=== PATIENT | male | born 1935 | race Caucasian/White ===

== ENCOUNTER 2020-03-11 11:14 | Emergency (ER) | payer MEDICARE, MEDICAID, BC, SELFPAY ==
[2020-03-11] VITALS (9 sets, daily range): BP systolic 119–145; BP diastolic 52–59; PULSE 72–105; RESP 34–49; TEMP 37; O2SAT 86–98; BMI 27.6
--- NOTE | 2020-03-11 11:57 | ECG_ITS ---
[facility] Test Date: 2020-03-11 Pat Name: Lourdes Meza Department: Room: Gender: Male Certified Histologic Technician: : 1935 Requested By: Arthur yTler Order Number: [id number] Adeline MD: Jp Caldera M.D. Measurements Intervals [place] Rate: 93 P: 64 CO: 157 QRS: -12 QRSD: 99 T: -10 QT: 347 QTc: 432 Interpretive Statements SINUS RHYTHM WITH SINUS ARRHYTHMIA POSSIBLE LEFT ATRIAL ENLARGEMENT [-0.1mV P WAVE IN V1/V2] INFERIOR MYOCARDIAL INFARCTION , OF INDETERMINATE AGE [40+ ms Q WAVE AND/OR ST/T ABNORMALITY IN II/aVF] Compared to ECG 07/02/2016 22:44:31 Myocardial infarct finding now present Electronically Signed On 03-11-2020 20:54:09 CDT by Jp Caldera M.D. [id number] f
--- NOTE | 2020-03-11 11:57 | XR_ITS ---
WS: [id number] XR chest 1V portable [id number] REASON FOR EXAM: dyspnea/hypoxia FINDINGS: There is cardiomegaly. There are interstitial changes, most notably in the left lung. The interstitial changes in the right lower lung may represent Zoie B lines. The costophrenic angles are not included on this examination . XR/XR chest 1V portable [id number] IMPRESSION: The chest is not optimally positioned on this examination with exclusion of the costophrenic angles. The findings that are seen are most suggestive of congest joe heart failure.
[2020-03-11 12:03] LABS: ABG PCO2 34.1 mmHg (35-45); ABG PH Result 7.43 (7.35-7.45); Arterial Blood Gas Hematocrit 39.2 % (42-52); Base Excess ABG -1.3 mmol/L (-2.0-2.0); Blood Gas Allen Test Pos; Blood Gas Sample Site Radial, left; Blood Gas Sample Type Arterial; HCO3 ABG 22.5 mmol/L (22-26); Oxygen Device NRB; PO2 ABG 55.9 mmHg (80.0-100.0)
[2020-03-11 12:41] LABS: Basophils % 0.2 %; Eosinophils % 0.1 %; Hematocrit 40.2 % (42.0-52.0); Hemoglobin 12.6 g/dL (11.7-16.6); Lymphocytes # 1.7 10^3/uL (0.8-4.8); Lymphocytes % 9.5 %; Mean Corpuscular HGB Conc 31.3 g/dL (30.0-36.0); Mean Corpuscular Hemoglobin 29.8 pg (28.0-34.0); Mean Platelet Volume 10.2 fL (7.4-10.4); Monocytes # 0.5 10^3/uL (0.2-0.9); Monocytes % 2.8 %; Neutrophils # 15.56 10^3/uL (1.8-7.7); Neutrophils % 86.6 %; Nucleated Red Blood Cells % 0 %; Platelet Count 246 10^3/cmm (130-400); Red Blood Count 4.23 10^6/uL (4.1-5.3); Red Cell Distribution Width 13.3 % (12.1-15.1)
[2020-03-11] MEDS: dexamethasone 4 mg/mL INJ 6 MG IVP (12:45)
[2020-03-11 12:52] LABS: Fibrinogen 809 mg/dL (174-498)
[2020-03-11 12:59] LABS: Lactic Sepsis W/Reflex 3.6 mmol/L (0.5-2.2)
[2020-03-11 13:00] LABS: Alanine Aminotransferase 16 U/L (0-41); Albumin Level 2.6 g/dL (3.5-5.2); Alkaline Phosphatase 88 IU/L (40-130); Anion Gap 17.6 (5-19); Aspartate Amino Transferase 16 U/L (0-40); Blood Urea Nitrogen 29 mg/dL (8-23); Calcium 8.4 mg/dL (8.5-10.5); Carbon Dioxide 20 mmol/L (22-29); Chloride 105 mmol/L (98-107); Creatine Phosphokinase 39 U/L (39-308); Globulin 4.3 g/dL (1.3-4.6); Glucose 128 mg/dL (65-115); Lactate Dehydrogenase 422 U/L (135-225); Magnesium 2.2 mg/dL (1.7-2.3); Osmolality Calculated 295 mOsm/kg (285-295); Potassium 3.6 mmol/L (3.5-5.1); Sodium 139 mmol/L (136-145); Total Bilirubin 0.5 mg/dL (0.15-1.2); Total Protein 6.9 g/dL (6.6-8.7)
[2020-03-11 13:02] LABS: D Dimer 5.08 ug/mIFEU (0-0.59)
[2020-03-11 13:29] LABS: C Reactive Protein 179.1 mg/L (0.0-4.9)
[2020-03-11] MEDS: FUROsemide 10 mg/mL SDV 4mL 40 MG IVP (13:29)
[2020-03-11] MEDS: LORazepam 2 mg/mL INJ 1 mL (14:22)
[2020-03-11 14:23] LABS: Reflex Lactate Order REFLEX LACTIC ORDERD
--- NOTE | 2020-03-11 14:25 | PC.NURSE ---
patient pulled off Bipap nurse entered room and patient had pulled off bipap mask. oxygen saturation at 78% without bipap. nurse placed bipap back on patient, oxygen saturation increased to 87% in two minutes. verbal order for 2 mg ativan from . will continue to monitor.
--- NOTE | 2020-03-11 15:14 | ED_ITS ---
HPI - SOB/Dyspnea General: Chief Complaint: Shortness of Breath/Dyspnea Stated Complaint: COVID + SOB Time Seen by Provider: 03/11/20 11:17 History of Present Illness: HPI Narrative: 84 yo male presents from the longterm. He is a known COVID positive patient, he is also evidently Do Not Recussitate. MD elicited complaint: shortness of breath and cough Pertinent past history: COPD and congestive heart failure Onset (ago): day(s) Context: recent illness (Known recent diagnosis of COVID.) Timing: constant Severity: moderate Associated symptoms: Deny abdominal pain, chest pain, extremity pain, fever(s), nausea, orthopnea, palpitations, syncope or vomiting Review of Systems Const: Denies: fever(s), chills, body aches, fatigue, malaise or night sweats Card: Denies: chest pain, palpitations, irregular heart rhythm, edema, syncope, dyspnea on exertion, orthopnea or leg pain with exertion Resp: Denies: dyspnea, productive cough, non-productive cough or wheezing GI: Denies: abdominal pain, nausea, vomiting, hematemesis, coffee ground emesis, dysphagia, heartburn, diarrhea, constipation, GI cramping, hematochezia or melena : Denies: flank pain, difficulty urinating, dysuria, urinary frequency, urinary urgency, urinary incontinence or hematuria Musc: Denies: neck pain, back pain, extremity pain, extremity swelling, joint pain or joint swelling Physical Exam Const: COMMON NORMALS: no acute distress HENMT: COMMON NORMALS: normocephalic, atraumatic and hearing grossly normal bilaterally HEAD & SCALP: normocephalic and atraumatic Neck/C-Spine: COMMON NORMALS: no JVD Resp: AUSCULTATION: wheezes (Mild expiratory wheezes) Cardio: COMMON NORMALS: no JVD, regular rate, regular rhythm and No murmurs present (Cardio) RATE: regular rate RHYTHM: regular rhythm GI: COMMON NORMALS: Soft to palpation and No hepatosplenomegaly present AUSCULTATION: Yes normoactive bowel sounds PALPATION: Yes Soft to palpation, No Tenderness to palpation present (GI), No Guarding due to palpation present (GI) and Yes No hepatosplenomegaly present Extremity: COMMON NORMALS: normal to inspection, capillary refill normal, no clubbing, cyanosis or edema, no calf tenderness and no pedal edema Skin: COMMON NORMALS: no rashes or lesions noted GENERAL SKIN EXAM: no rashes or lesions noted Course Vital Signs: Vital signs: Vital Signs Temperature 98.6 F 03/11/20 11:15 Pulse Rate 77 03/11/20 14:31 Respiratory Rate 39 H 03/11/20 14:31 Blood Pressure 119/59 03/11/20 14:31 Pulse Oximetry 98 03/11/20 14:31 MDM - SOB/Dyspnea MDM Narrative: Medical decision making narrative: Discussed with attending. Will discharge back to longterm with dexamethasone patient actually is a Do Not Recussitate. Lab Data: Labs: Lab Results 03/11/20 03/11/20 03/11/20 Range/Units 11:30 11:30 11:30 WBC 18.0 H (4.0-10.0) 10^3/ uL RBC 4.23 (4.1-5.3) 10^6/u L Hgb 12.6 (11.7-16.6) g/dL Hct 40.2 L (42.0-52.0) % MCV 95.0 H (80-94) fL MCH 29.8 (28.0-34.0) pg MCHC 31.3 (30.0-36.0) g/dL RDW 13.3 (12.1-15.1) % Plt Count 246 (130-400) 10^3/c mm MPV 10.2 (7.4-10.4) fL Neut % (Auto) 86.6 % Lymph % (Auto) 9.5 % Rice % (Auto) 2.8 % Eos % (Auto) 0.1 % Baso % (Auto) 0.2 % Neut # (Auto) 15.56 H (1.8-7.7) 10^3/u L Lymph # (Auto) 1.7 (0.8-4.8) 10^3/u L Rice # (Auto) 0.5 (0.2-0.9) 10^3/u L Eos # (Auto) 0.0 (0.0-0.8) 10^3/u L Baso # (Auto) 0.0 (0.0-0.1) 10^3/u L Nucleated RBC % (a uto) 0 % Nucleated RBCs # 0.0 /100WBC Fibrinogen 809 H (174-498) mg/dL D-Dimer 5.08 H (0-0.59) ug/mIFE U Specimen Type Sample Site ABG pH (7.35-7.45) ABG pCO2 (35-45) mmHg ABG pO2 (80.0-100.0) mmH g ABG HCO3 (22-26) mmol/L ABG Base Excess (-2.0-2.0) mmol/ L Dmitriy Test Hematocrit (42-52) % O2 Delivery Device O2 Liters/Min % Newspaper Distributor Supervisor ID Sodium 139 (136-145) mmol/L Potassium 3.6 (3.5-5.1) mmol/L Chloride 105 (98-107) mmol/L Carbon Dioxide 20 L (22-29) mmol/L Anion Gap 17.6 (5-19) BUN 29 H (8-23) mg/dL Creatinine 1.3 H (0.7-1.2) mg/dL GFR Calculation Not Reportable Glucose 128 H (65-115) mg/dL Calculated Osmolal ity 295 (285-295) mOsm/k g Lactic Acid (0.5-2.2) mmol/L Lactic Acid (Sepsi s) (0.5-2.2) mmol/L Calcium 8.4 L (8.5-10.5) mg/dL Magnesium 2.2 (1.7-2.3) mg/dL Total Bilirubin 0.5 (0.15-1.2) mg/dL AST 16 (0-40) U/L ALT 16 (0-41) U/L Alkaline Phosphata se 88 (40-130) IU/L Lactate Dehydrogen ase 422 H (135-225) U/L Creatine Kinase 39 (39-308) U/L C-Reactive Protein 179.1 H (0.0-4.9) mg/L Total Protein 6.9 (6.6-8.7) g/dL Albumin 2.6 L (3.5-5.2) g/dL Globulin 4.3 (1.3-4.6) g/dL 03/11/20 03/11/20 03/11/20 Range/Units 11:30 11:53 14:39 WBC (4.0-10.0) 10^3/ uL RBC (4.1-5.3) 10^6/u L Hgb (11.7-16.6) g/dL Hct (42.0-52.0) % MCV (80-94) fL MCH (28.0-34.0) pg MCHC (30.0-36.0) g/dL RDW (12.1-15.1) % Plt Count (130-400) 10^3/c mm MPV (7.4-10.4) fL Neut % (Auto) % Lymph % (Auto) % Rice % (Auto) % Eos % (Auto) % Baso % (Auto) % Neut # (Auto) (1.8-7.7) 10^3/u L Lymph # (Auto) (0.8-4.8) 10^3/u L Rice # (Auto) (0.2-0.9) 10^3/u L Eos # (Auto) (0.0-0.8) 10^3/u L Baso # (Auto) (0.0-0.1) 10^3/u L Nucleated RBC % (a uto) % Nucleated RBCs # /100WBC Fibrinogen (174-498) mg/dL D-Dimer (0-0.59) ug/mIFE U Specimen Type Arterial Sample Site Radial, left ABG pH 7.43 (7.35-7.45) ABG pCO2 34.1 L (35-45) mmHg ABG pO2 55.9 L (80.0-100.0) mmH g ABG HCO3 22.5 (22-26) mmol/L ABG Base Excess -1.3 (-2.0-2.0) mmol/ L Dmitriy Test Pos Hematocrit 39.2 L (42-52) % O2 Delivery Device Nrb O2 Liters/Min 15.0 % Newspaper Distributor Supervisor ID yorna Sodium (136-145) mmol/L Potassium (3.5-5.1) mmol/L Chloride (98-107) mmol/L Carbon Dioxide (22-29) mmol/L Anion Gap (5-19) BUN (8-23) mg/dL Creatinine (0.7-1.2) mg/dL GFR Calculation Glucose (65-115) mg/dL Calculated Osmolal ity (285-295) mOsm/k g Lactic Acid 3.6 H (0.5-2.2) mmol/L Lactic Acid (Sepsi s) 3.0 H (0.5-2.2) mmol/L Calcium (8.5-10.5) mg/dL Magnesium (1.7-2.3) mg/dL Total Bilirubin (0.15-1.2) mg/dL AST (0-40) U/L ALT (0-41) U/L Alkaline Phosphata se (40-130) IU/L Lactate Dehydrogen ase (135-225) U/L Creatine Kinase (39-308) U/L C-Reactive Protein (0.0-4.9) mg/L Total Protein (6.6-8.7) g/dL Albumin (3.5-5.2) g/dL Globulin (1.3-4.6) g/dL Discharge Plan Discharge Patient Disposition: Home Clinical Impression: COVID-19 Condition: Stable Prescriptions: New dexamethasone 6 mg tablet 6 mg PO DAILY Qty: 7 RF: 0 No Action rivastigmine tartrate 1.5 mg Capsule 1.5 mg PO BID RF: 0 acetaminophen 325 mg Tablet 650 mg PO Q6H PRN (Reason: unknown) RF: 0 albuterol sulfate 2.5 mg /3 mL (0.083 %) Solution For Nebulization 2.5 mg INHALATION Q6H PRN (Reason: unknown) RF: 0 [place] 5-325 mg Tablet 1 tab PO Q4H PRN (Reason: Pain) RF: 0 Zofran 4 mg Tablet 4 mg PO Q6H PRN (Reason: Nausea) RF: 0 venlafaxine 150 mg Capsule,Extended Release 24hr 150 mg PO DAILY RF: 0 aspirin 81 mg Tablet,Delayed Release (Dr/Ec) 81 mg PO DAILY RF: 0 guaifenesin 100 mg/5 mL Liquid 100 mg PO QID PRN (Reason: unknown) RF: 0 triamcinolone acetonide 0.1 % Cream 1 applic TOPICAL BID PRN (Reason: unknown) RF: 0 alprazolam 0.25 mg Tablet 0.25 mg PO BID PRN (Reason: unknown) RF: 0 Milk of Magnesia 400 mg/5 mL Suspension 30 ml PO DAILY PRN (Reason: Constipation) RF: 0 tamsulosin 0.4 mg Capsule 0.4 mg PO BEDTIME RF: 0 bisacodyl 10 mg Suppository 10 mg MA DAILY PRN (Reason: Constipation) RF: 0 simvastatin 20 mg Tablet 20 mg PO BEDTIME RF: 0 Fleet Enema 19-7 gram/118 mL Enema 118 ml MA DAILY PRN (Reason: Constipation) RF: 0 bisacodyl 5 mg Tablet,Delayed Release (Dr/Ec) 10 mg PO DAILY PRN (Reason: Constipation) RF: 0 finasteride 5 mg Tablet 5 mg PO DAILY RF: 0 Lovenox 40 mg/0.4 mL Syringe 40 mg SUBCUT DAILY RF: 0 [place] Nasal 0.65 % Aerosol,[place] 2 spray INTRANASAL TID PRN (Reason: unknown) RF: 0 Eucerin Cream 1 applic TOPICAL BID PRN (Reason: unknown) RF: 0 Mucinex 600 mg Tablet Extended Release 12hr 600 mg PO BID RF: 0 Liquitears 1 drp ophthalmic (eye) QID RF: 0 Discharge Orders: Discharge Order (Routine); Ordered 03/11/20 Ordered By: Arthur Cornell Referrals: Cyrus Mcclain DO [Primary Care Provider] - Discharge Date/Time: 03/11/20 16:14 Coding Level of Care Code ED Consumer Loan Manager for Chg Fwd Exam Comprehensive
--- NOTE | 2020-03-11 15:37 | PC.NURSE ---
Report Called to Melba at [facility]. Melba requested catheter to be discontinued before return to facility. Peace Aparicio, RN removed zhang. Vital Sign for report HR 79, 89% Sat, 35-RR, 122/47-BP. Made aware of DNR status and assured Melba that family had spoken with physician and came to the understanding of DNR.
--- NOTE | 2020-03-11 15:47 | PC.NURSE ---
Bailey cath removed. Balloon deflated and removed without complications.
== END 2020-03-11 16:14 | disposition home or self-care (01) ==
PROVIDERS: Emergency Provider Family Medicine; PCP Internal Medicine
DX: U07.1 COVID-19 (principal); Z79.82 Long term (current) use of aspirin
CPT/HCPCS: 12345; 36415; 36600; 51702; 71045; 80053; 82550; 82803; 83605; 83615; 83735; 85025; 85378; 85384; 86140; 93005; 94660; 96374; 96375; 99282; 99283; 99284; J1100; J1940; J2060